=== PATIENT | male | born 1990 | race Caucasian/White ===

== ENCOUNTER 2019-08-31 12:26 | Emergency (ER) | payer SELFPAY | END 2019-08-31 12:34 | disposition left against medical advice (07) | LOC: ER 12:49 | PROVIDERS: Emergency Provider Emergency Medicine | DX: F23 Brief psychotic disorder (principal); R45.851 Suicidal ideations; F15.10 Other stimulant abuse, uncomplicated; F12.10 Cannabis abuse, uncomplicated | CPT/HCPCS: 99281 ==

== ENCOUNTER 2019-08-31 20:48 | Inpatient (IN) | payer SELFPAY ==
[2019-08-31 20:52] VITALS: BP 104/74; PULSE 108; RESP 20; TEMP 37.1; O2SAT 98; BMI 22.8
--- NOTE | 2019-08-31 20:58 | W.ED.PSYCH ---
HPI - Psych General: Chief Complaint: Psychiatric Symptoms Stated Complaint: SI Time Seen by Provider: 08/31/19 20:56 Source: patient Mode of arrival: ambulatory Limitations: no limitations History of Present Illness: HPI Narrative: Patient was brought in by law enforcement for concerns of suicidal intent. Patient was found hanging a noose over a tree limb and setting a cooler under the tree in order to hang himself from a tree. Patient made comments to law enforcement and his sister that he wanted to . Patient reports that he was just mad and upset and was saying things that he did not mean. Patient admits to using methamphetamines. Patient denies feeling suicidal at this time. Patient reports no homicidal intent. Although patient's actions does question his intent on suicidality. Patient is agreeable to admission into NPU. Associated psychiatric symptoms: suicidal ideation Associated symptoms: Reports suicidal ideation Review of Systems General: Reports: 10 or more systems reviewed and unremarkable except in HPI and below Psych: Reports: suicidal ideation [facility] ED PFSH: Social History (Updated 08/31/19 @ 21:08 by Erika Mcallister RN) Smoking and tobacco status: current every day smoker Second hand smoke exposure: Yes Alcohol intake: current Last alcohol use date: 08/28/19 Substance/Drug Use: current Substance/Drug use frequency: Special occassions/opportunity only Substance/Drug use type: Marijuana and Methamphetamine Caregiver/support person: No Lives independently: Yes (homeless) Number of children: 2 Highest education level completed: GED or Equivalent Physical Exam Const: COMMON NORMALS: no apparent distress and oriented x3 GENERAL APPEARANCE: cooperative HENMT: COMMON NORMALS: normocephalic, external ears normal, EAC's normal, TM's normal bilaterally and external nose normal HEAD & SCALP: normal to inspection and normocephalic FACE & SINUS: normal facial exam NOSE: external nose normal GENERAL EAR: hearing not grossly impaired EXTERNAL EAR: Yes external ears normal EXTERNAL AUDITORY CANAL: EAC's normal TYMPANIC MEMBRANE: TM's normal bilaterally MOUTH: oral and palatal mucosa normal THROAT: posterior oropharynx normal Eye: COMMON NORMALS: PERRL and EOMs intact bilaterally PUPIL: Yes PERRL Neck/C-Spine: COMMON NORMALS: full ROM and no lymphadenopathy Lymph: LYMPHATIC: no lymphedema noted Chest: COMMONS NORMALS: inspection of chest normal and palpation of chest normal Resp: COMMON NORMALS: normal respiratory effort and clear to auscultation bilaterally AUSCULTATION: clear to auscultation bilaterally Cardio: COMMON NORMALS: regular rate and regular rhythm RATE: regular rate RHYTHM: regular rhythm GI: COMMON NORMALS: normal to inspection, nondistended, normoactive bowel sounds and non-tender : COMMON NORMALS: Yes no CVA tenderness BLADDER/KIDNEY EXAM: Yes no CVA tenderness Back/Pelvis: COMMON NORMALS: no CVA tenderness and thoracic and lumbar spine normal to inspection Extremity: COMMON NORMALS: normal to inspection GENERAL: No edema Neuro: COMMON NORMALS: oriented x3, moves all extremities and no focal motor deficits Psych: COMMON NORMALS: cooperative, denies hallucinations, denies homicidal ideation and denies suicidal ideation APPEARANCE: Yes bizarre ATTITUDE: Yes evasive ACTIVITY/MOTOR BEHAVIOR: No appropriate eye contact and Yes hyperactive SPEECH: Yes rapid MOOD & AFFECT: Yes anxious THOUGHT PROCESS: circumstantial ATTENTION/CONCENTRATION: Yes attention grossly intact MEMORY/COGNITION: Yes memory grossly intact INSIGHT: fair JUDGEMENT: fair Skin: COMMON NORMALS: no rashes or lesions noted GENERAL SKIN EXAM: no rashes or lesions noted MDM - Psych MDM Narrative: Medical decision making narrative: Patient comes in today for concerns of suicidal intent. Patient was found putting a rope over a tree limb and making a noose apparently going to hang himself. On enforcement I had arrived centimeters this and had placed the patient into their custody and brought him into the emergency department. Patient denies suicidality or homicidality although his intent is in question. Patient is cooperative and agrees to admission to [employer] you. Differential diagnosis includes substance abuse, suicidal ideation, major depression, schizotypal disorder, acute psychosis. Patient needs admission for monitoring and protection of self. Discussed with Dr. Blake who agreed to admission to NPU. Lab Data: Labs: Lab Results 08/31/19 08/31/19 08/31/19 Range/Units 21:18 21:18 21:34 WBC 9.3 (4.0-10.0) 10^3/ uL RBC 4.74 (4.1-5.3) 10^6/u L Hgb 15.0 (11.7-16.6) g/dL Hct 42.4 (42.0-52.0) % MCV 89.5 (80-94) fL MCH 31.6 (28.0-34.0) pg MCHC 35.4 (30.0-36.0) g/dL RDW 11.8 L (12.1-15.1) % Plt Count 239 (130-400) 10^3/c mm MPV 9.5 (7.4-10.4) fL Neut % (Auto) 74.6 % Lymph % (Auto) 15.9 % Levy % (Auto) 8.0 % Eos % (Auto) 0.9 % Baso % (Auto) 0.3 % Neut # (Auto) 6.9 (1.8-7.7) 10^3/u L Lymph # (Auto) 1.5 (0.8-4.8) 10^3/u L Levy # (Auto) 0.7 (0.2-0.9) 10^3/u L Eos # (Auto) 0.1 (0.0-0.8) 10^3/u L Baso # (Auto) 0.0 (0.0-0.1) 10^3/u L Nucleated RBC % (a uto) 0 % Nucleated RBCs # 0.0 /100WBC Sodium (136-145) mmol/L Potassium (3.5-5.1) mmol/L Chloride (98-107) mmol/L Carbon Dioxide (22-29) mmol/L Anion Gap (5-19) BUN (6-20) mg/dL Creatinine (0.7-1.2) mg/dL GFR Calculation (90-130) mL/min Glucose (65-115) mg/dL Calculated Osmolal ity (285-295) mOsm/k g Calcium (8.5-10.5) mg/dL Total Bilirubin (0.15-1.2) mg/dL AST (0-40) U/L ALT (0-41) U/L Alkaline Phosphata se (40-130) IU/L Total Protein (6.6-8.7) g/dL Albumin (3.5-5.2) g/dL Globulin (1.3-4.6) g/dL TSH (0.27-4.20) uIU/ mL Urine Color Yellow (Yellow) Urine Appearance Clear (CLEAR) Urine pH 5 (5-7) Ur Specific Gravit y 1.020 (1.005-1.030) Urine Protein Neg (Negative) Urine Glucose (UA) Norm (Normal) Urine Ketones 1+ H (Negative) Urine Blood 2+ H (Negative) Urine Nitrate Negative (Negative) Urine Bilirubin 1+ H (NEGATIVE) Urine Urobilinogen 4 H (Negative) mg/dL Ur Leukocyte Chen ase Negative (Negative) Urine RBC Too numerous to c nt H (0-2) /hpf Urine WBC None (0-5) /hpf Ur Squamous Epith Cells 0-4 H (0-5) Urine Bacteria 1+ H (NONE) Salicylates (3-10) mg/dL Urine Opiates Scre en Negative (Negative) ng/mL Acetaminophen (10-30) ug/mL Ur Barbiturates Sc reen Negative (Negative) ng/mL Ur Phencyclidine S crn Negative (Negative) ng/mL Ur Amphetamines Sc reen Positive H (Negative) ng/mL U Benzodiazepines Scrn Negative (Negative) ng/mL Urine Cocaine Scre en Negative (Negative) ng/mL U Marijuana (THC) Screen Positive H (Negative) ng/mL Ethyl Alcohol (0-10) mg/dL 08/31/19 Range/Units 21:34 WBC (4.0-10.0) 10^3/ uL RBC (4.1-5.3) 10^6/u L Hgb (11.7-16.6) g/dL Hct (42.0-52.0) % MCV (80-94) fL MCH (28.0-34.0) pg MCHC (30.0-36.0) g/dL RDW (12.1-15.1) % Plt Count (130-400) 10^3/c mm MPV (7.4-10.4) fL Neut % (Auto) % Lymph % (Auto) % Levy % (Auto) % Eos % (Auto) % Baso % (Auto) % Neut # (Auto) (1.8-7.7) 10^3/u L Lymph # (Auto) (0.8-4.8) 10^3/u L Levy # (Auto) (0.2-0.9) 10^3/u L Eos # (Auto) (0.0-0.8) 10^3/u L Baso # (Auto) (0.0-0.1) 10^3/u L Nucleated RBC % (a uto) % Nucleated RBCs # /100WBC Sodium 141 (136-145) mmol/L Potassium 4.0 (3.5-5.1) mmol/L Chloride 101 (98-107) mmol/L Carbon Dioxide 26 (22-29) mmol/L Anion Gap 18.0 (5-19) BUN 16 (6-20) mg/dL Creatinine 0.7 (0.7-1.2) mg/dL GFR Calculation 131.5 H (90-130) mL/min Glucose 113 (65-115) mg/dL Calculated Osmolal ity 289 (285-295) mOsm/k g Calcium 9.8 (8.5-10.5) mg/dL Total Bilirubin 0.5 (0.15-1.2) mg/dL AST 23 (0-40) U/L ALT 17 (0-41) U/L Alkaline Phosphata se 63 (40-130) IU/L Total Protein 7.6 (6.6-8.7) g/dL Albumin 4.3 (3.5-5.2) g/dL Globulin 3.3 (1.3-4.6) g/dL TSH 0.94 (0.27-4.20) uIU/ mL Urine Color (Yellow) Urine Appearance (CLEAR) Urine pH (5-7) Ur Specific Gravit y (1.005-1.030) Urine Protein (Negative) Urine Glucose (UA) (Normal) Urine Ketones (Negative) Urine Blood (Negative) Urine Nitrate (Negative) Urine Bilirubin (NEGATIVE) Urine Urobilinogen (Negative) mg/dL Ur Leukocyte Chen ase (Negative) Urine RBC (0-2) /hpf Urine WBC (0-5) /hpf Ur Squamous Epith Cells (0-5) Urine Bacteria (NONE) Salicylates 0.5 L (3-10) mg/dL Urine Opiates Scre en (Negative) ng/mL Acetaminophen < 5.0 L (10-30) ug/mL Ur Barbiturates Sc reen (Negative) ng/mL Ur Phencyclidine S crn (Negative) ng/mL Ur Amphetamines Sc reen (Negative) ng/mL U Benzodiazepines Scrn (Negative) ng/mL Urine Cocaine Scre en (Negative) ng/mL U Marijuana (THC) Screen (Negative) ng/mL Ethyl Alcohol < 10 (0-10) mg/dL Discharge Plan Discharge Patient Disposition: Psych Hosp/Unit w Plan Readm Clinical Impression: Acute psychosis Condition: Stable Discharge Date/Time: 08/31/19 22:30 Coding Level of Care Code ED Scheduler Conveyor for Valeria Fwtheresa Exam Comprehensive
[2019-08-31 21:05] VITALS: BP 104/74; PULSE 108; RESP 20; TEMP 37.1; O2SAT 98
[2019-08-31 21:37] LABS: Blood Urine 2+ (Negative); Glucose Urine UA Norm (Normal); Ketones Urine 1+ (Negative); Nitrate Urine Negative (Negative); Protein Urine Neg (Negative); Urine Appearance Clear (CLEAR); Urine Color Yellow (Yellow); pH Urine 5 (5-7)
[2019-08-31 21:38] LABS: Add Urine Microscopic? YES; Bilirubin Urine 1+ (NEGATIVE); Leukocyte Esterase Urine Negative (Negative); Urobilinogen Urine 4 mg/dL (Negative)
[2019-08-31 21:40] LABS: Add Urine Culture? Yes; Amphetamines Screen Urine Positive (Negative); Bacteria Urine 1+; Barbiturates Screen Urine Negative (Negative); Benzodiazepines Screen Urine Negative (Negative); Cocaine Screen Urine Negative (Negative); Opiate Screen Urine Negative (Negative); PCP Screen Urine Negative (Negative); RBC Urine TOO NUMEROUS TO CNT /hpf (0-2); Squamous Epithelial Cell Urine 0-4 (0-5); THC Screen Urine Positive (Negative)
[2019-08-31 21:43] LABS: Basophils % 0.3 %; Eosinophils # 0.1 10^3/uL (0.0-0.8); Eosinophils % 0.9 %; Hematocrit 42.4 % (42.0-52.0); Lymphocytes # 1.5 10^3/uL (0.8-4.8); Lymphocytes % 15.9 %; Mean Corpuscular HGB Conc 35.4 g/dL (30.0-36.0); Mean Corpuscular Hemoglobin 31.6 pg (28.0-34.0); Mean Corpuscular Volume 89.5 fL (80-94); Mean Platelet Volume 9.5 fL (7.4-10.4); Monocytes # 0.7 10^3/uL (0.2-0.9); Neutrophils # 6.9 10^3/uL (1.8-7.7); Neutrophils % 74.6 %; Nucleated Red Blood Cells % 0 %; Platelet Count 239 10^3/cmm (130-400); Red Blood Count 4.74 10^6/uL (4.1-5.3); Red Cell Distribution Width 11.8 % (12.1-15.1); White Blood Count 9.3 10^3/uL (4.0-10.0)
[2019-08-31 22:03] LABS: Alanine Aminotransferase 17 U/L (0-41); Albumin Level 4.3 g/dL (3.5-5.2); Alkaline Phosphatase 63 IU/L (40-130); Aspartate Amino Transferase 23 U/L (0-40); Blood Urea Nitrogen 16 mg/dL (6-20); Calcium 9.8 mg/dL (8.5-10.5); Carbon Dioxide 26 mmol/L (22-29); Chloride 101 mmol/L (98-107); Globulin 3.3 g/dL (1.3-4.6); Glomerular Filtration Rate 131.5 mL/min (90-130); Glucose 113 mg/dL (65-115); Osmolality Calculated 289 mOsm/kg (285-295); Salicylate 0.5 mg/dL (3-10); Sodium 141 mmol/L (136-145); Thyroid Stimulating Hormone 0.94 uIU/mL (0.27-4.20); Total Bilirubin 0.5 mg/dL (0.15-1.2); Total Protein 7.6 g/dL (6.6-8.7)
[2019-08-31 22:05] LABS: Acetaminophen < 5.0 ug/mL (10-30); Alcohol Level < 10 mg/dL (0-10)
[2019-08-31 22:38] VITALS: BP 113/76; PULSE 92; RESP 18; TEMP 36.9; O2SAT 99
[2019-09-01 06:00] VITALS: BP 116/72; PULSE 63; RESP 21; TEMP 36.8; O2SAT 98
--- NOTE | 2019-09-01 09:56 | P.HP_ITS ---
Providers/Chief Complaint Admitting Physician: Wilton Blake MD Chief Complaint: SI HPI NPU History of Present Illness John Osei Jr is a 29 year old male who presented to the emergency room with significant psychosis and confusion who presents much the same way after being admitted for psychosis and suicidal thinking. He is able to answer questions but only rudimentary as he struggles to stay awake and struggles to make sensible responses. At times his speech is linear and organized but at times it is clearly not. He was able to acknowledge that he has significant issues with addiction and he has to figure that out with this won't get better. We reviewed as best he could his most recent psychiatric evaluation here on a and he denied any significant changes at this time he struggling with legal and addiction issues he is unsure if he'll have a place to stay as his mother has become fed up with his repeated behavior. He reported a desire to continue treatment somehow some inpatient treatment facility with a find one and he was open to initiating Abilify after discussion of the risks, benefits and alternatives. He understood and agreed to proceed as is documented in his note. Psychiatric history: As above multiple hospitalizations and substance abuse treatment facilities. Reportedly multiple medication trials. Substance abuse history: He reports significant methamphetamine use these days. He also endorses other drug use depending on the time. He reports that he has had treatment in the past but he never sticks with it and he truly has to find another way to do that. Per last [facility] eval: History of Present Illness Date of Service: Feb 03, 2019 Chief Complaint: Acute paranoia, requesting help with methamphetamine abuse. HPI: This is a 29-year-old male who reports that he has been abusing meth he has become increasingly paranoid to the point that, while being transferred to [facility] for a possible drug overdose, jumped out of the ambulance in [place], went into an [employer]'s store, bought a knife and told the staff to call the police. The patient stood outside the store and was foundby responding law enforcement officers to be extremely paranoid. One officer asked the patient if he had used drugs recently and he stated he had used meth today and just about every day. The patient was convinced that people were following him and out to get him. [facility]'s officers reported that the patient had been a problem for about a week, in and out of [place] [facility] in the emergency room. Patient ran his head and his hand through a one-way last in the interrogation. He was violent and combative in the emergency room. Allergies: Coded Allergies: HALOPERIDOL (Verified Allergy, Severe, 02/03/19) Active Meds: Current Hospital Medications: Medications (Trade) Dose Ordered Sig/Teddy Route PRN Reason Start Time Stop Time Status Last Admin Dose Admin Lorazepam (Ativan Tab) 0.5 mg Q4H PRN PO FOR MILD ANXIETY 02/02/19 23:30 Lorazepam (Ativan Tab) 1 mg Q4H PRN PO FOR MODERATE ANXIETY 02/02/19 23:30 Lorazepam (Ativan Tab) 2 mg Q4H PRN PO FOR SEVERE ANXIETY 02/02/19 23:30 Lorazepam (Ativan Inj) 2 mg Q4H PRN IM For Severe Aggression 02/02/19 23:30 Diphenhydramine HCl (Benadryl Inj) 50 mg ONCE PRN IV Severe Extrapyramidal Symptoms 02/02/19 23:30 Benztropine Mesylate (Cogentin Tab) 1 mg BID PRN PO Mild Extrapyramidal symptoms 02/02/19 23:30 Benztropine Mesylate (Cogentin Inj) 1 mg ONCE PRN IM Severe Extrapyramidal Symptom 02/02/19 23:30 Acetaminophen (Tylenol Tab) 650 mg Q4H PRN PO FOR MILD PAIN 02/02/19 23:30 02/03/19 11:13 Trazodone HCl (Trazodone) 50 mg BEDTIME PRN PO FOR SLEEP 02/02/19 23:30 Nicotine (Nicoderm Patch) 21 mg DAILY PRN TD FOR WITHDRAWAL 02/02/19 23:30 Nicotine Polacrilex (Nicotine Gum) 2 mg Q2H PRN PO Withdrawal 02/02/19 23:30 Lorazepam (Ativan Tab) 2 mg Q4H PRN PO FOR AGITATION 02/02/19 23:30 Cephalexin (Keflex Cap) 500 mg QID PO 02/03/19 06:00 02/03/19 11:11 Home Meds: Home Medications: Active No Active Prescriptions or Reported Medications Past Medical History Past Medical History: Not currently available. The patient not able to communicate coherently. Review of Systems Review of Systems: Not presently available Meds NPU Home Medications Medication Instructions Recorded Confirmed Type No Known Home Medications 08/31/19 08/31/19 History Allergies Allergy/AdvReac Type Severity Reaction Status Date / Time haloperidol [From Haldol] Allergy ALGY-Anaphy Verified 08/31/19 21:04 laxis PFS NPU PFSH: Social History (Updated 08/31/19 @ 21:08 by Erika Mcallister RN) Smoking and tobacco status: current every day smoker Second hand smoke exposure: Yes Alcohol intake: current Last alcohol use date: 08/28/19 Substance/Drug Use: current Substance/Drug use frequency: Special occassions/opportunity only Substance/Drug use type: Marijuana and Methamphetamine Caregiver/support person: No Lives independently: Yes (homeless) Number of children: 2 Highest education level completed: GED or Equivalent Mental Status Exam MSE Comments: This is a well-nourished well-developed white male with limited dress, grooming and eye contact. With tattoos on his exposed skin including his face. No abnormal movements except for significant psychomotor retardation. Cooperative with exam in no acute distress. Speech was limited and decreased rate and volume. Mood described as horrible affect congruent. Thought process organized/linear thought content: Patient denied suicidal or homicidal ideation, there were no delusions reported clear paranoia and persecutory delusions exist he denied any auditory or visual hallucinations. Attention and concentration were impaired and memory was unreliable but none were formally tested. He is alert mostly and oriented person and place insight and judgment are limited but improving. Vitals/I&O/Wt Last Vital Signs Temp 97.9 F 09/01/19 20:16 Pulse 63 09/01/19 20:16 Resp 18 09/01/19 20:16 BP 104/63 09/01/19 20:16 Pulse Ox 98 09/01/19 20:16 Weight last 48 hrs Weight 68.039 kg Data NPU : 08/31/19 21:34 08/31/19 21:34 A&P Assessment and plan (1) Acute psychosis: There is a 29-year-old white male with a long history of addiction with methamphetamine being prominent in recent years, psychosis and suicidal thoughts who presents after recent relapse with significant psychosis and inability to contract for safety. 1. Continue current medication. Except: Start Abilify 10 mg by mouth every morning. 2. Encourage individual, group and milieu therapy. 3. Continue every 15 minute checks for safety. 4. Work with social work to find a sober living facility at the highest level of treatment to which he is willing to commit. Status: Acute (2) Depression: Status: Acute (3) Methamphetamine dependence: Status: Acute Involuntary Hold Information 96 Hour Hold: 96 Hour Involuntary Admission: No Attestations NPU Medical Necessity Statement*: Inpatient hospitalization is medically necessary and the clinically appropriate intervention at this time. We will monitor his medications and titrate as indicated. He will be in the hospital for over 2 mid nights. Likely length of stay 2-4 days. Coding Level of Care Code Acute Operating Room Surgical Technician for Valeria Fwd Diagnoses Acute psychosis F23 Depression F32.9 Methamphetamine dependence F15.20
[2019-09-01 14:00] VITALS: BP 113/74; PULSE 96; RESP 20; TEMP 36.9; O2SAT 95
[2019-09-01 20:16] VITALS: BP 104/63; PULSE 63; RESP 18; TEMP 36.6; O2SAT 98
[2019-09-02 06:00] VITALS: BP 110/68; PULSE 57; RESP 19; TEMP 36.4; O2SAT 100
[2019-09-02] MEDS: ARIPiprazole 10 mg Tablet PO (09:19)
--- NOTE | 2019-09-02 12:57 | P.PN_ITS ---
Subjective NPU Subjective: Interval history: John presents today reporting that he feels the he really needs to get back on track. He reports that the medication generally is very helpful but due to addiction and other choices he never really follows through. He endorses feeling a significant drive this time to get it right. He reports that the medication is helping to clear his mind he reports that he is eating okay is sleeping a little better. Mental Status Exam MSE Comments: This is a well-nourished well-developed white male with limited dress, grooming and eye contact. With tattoos on his exposed skin including his face. No abnormal movements except for psychomotor retardation. Cooperative with exam in no acute distress. Speech was limited and decreased rate and volume. Mood described as a little better, affect congruent. Thought process organized/linear thought content: Patient denied suicidal or homicidal ideation, there were no delusions reported clear paranoia and persecutory delusions that are starting to resolve he denied any auditory or visual hallucinations. Atte ntion and concentration were improving and memory was more reliable but none were formally tested. He is alert and oriented x 3. insight and judgment are limited but improving. Vitals/I&O/Wt Last Vital Signs Temperature 97.6, pulse 97, respirations 19, pulse ox 100%, blood pressure 110/68. Data NPU : 08/31/19 21:34 08/31/19 21:34 Micro: Microbiology 08/31/19 21:18 Urine Culture - Final Urine,Clean Catch Microbiology 08/31/19 21:18 Urine,Clean Catch Urine Culture - Final A&P Additional A&P Information (1) Acute psychosis: There is a 29-year-old white male with a long history of addiction with methamphetamine being prominent in recent years, psychosis and suicidal thoughts who presents after recent relapse with significant psychosis and inability to contract for safety. 1. Continue current medication. 2. Encourage individual, group and milieu therapy. 3. Continue every 15 minute checks for safety. 4. Work with social work to find a sober living facility at the highest level of treatment to which he is willing to commit. (2) Depression: (3) Methamphetamine dependence: Involuntary Hold Information 96 Hour Hold: 96 Hour Involuntary Admission: No Attestations NPU Medical Necessity Statement*: Inpatient hospitalization is medically necessary and the clinically appropriate intervention at this time. We will monitor his medications and titrate as indicated. Likely length of stay 1-3 days. Coding Level of Care Code Acute Manager Development for Valeria Nino
[2019-09-02 14:00] VITALS: BP 107/63; PULSE 72; RESP 16; TEMP 36.8; O2SAT 97
[2019-09-02] MEDS: nicotine 2 mg Gum BUCCAL (14:04)
[2019-09-02 21:12] VITALS: BP 112/70; PULSE 59; RESP 17; TEMP 36.8; O2SAT 98
[2019-09-03 06:00] VITALS: BP 111/71; PULSE 61; RESP 16; TEMP 37.1; O2SAT 97
[2019-09-03] MEDS: ARIPiprazole 10 mg Tablet PO (08:40)
--- NOTE | 2019-09-03 12:25 | P.DS_ITS ---
Diagnoses at Discharge Discharge Diagnosis (1) Acute psychosis: Status: Acute (2) Depression: Status: Acute (3) Methamphetamine dependence: Status: Acute Reason for Visit Reason for Visit: Reason For Visit: SI Brief History: History of Present Illness John Osei Jr is a 29 year old male who presented to the emergency room with significant psychosis and confusion who presents much the same way after being admitted for psychosis and suicidal thinking. He is able to answer questions but only rudimentary as he struggles to stay awake and struggles to make sensible responses. At times his speech is linear and organized but at times it is clearly not. He was able to acknowledge that he has significant issues with addiction and he has to figure that out with this won't get better. We reviewed as best he could his most recent psychiatric evaluation here on a and he denied any significant changes at this time he struggling with legal and addiction issues he is unsure if he'll have a place to stay as his mother has become fed up with his repeated behavior. He reported a desire to continue treatment somehow some inpatient treatment facility with a find one and he was open to initiating Abilify after discussion of the risks, benefits and alternatives. He understood and agreed to proceed as is documented in his note. Psychiatric history: As above multiple hospitalizations and substance abuse treatment facilities. Reportedly multiple medication trials. Substance abuse history: He reports significant methamphetamine use these days. He also endorses other drug use depending on the time. He reports that he has had treatment in the past but he never sticks with it and he truly has to find another way to do that. Per last [facility] eval: History of Present Illness Date of Service: Feb 03, 2019 Chief Complaint: Acute paranoia, requesting help with methamphetamine abuse. HPI: This is a 29-year-old male who reports that he has been abusing meth he has become increasingly paranoid to the point that, while being transferred to [facility] for a possible drug overdose, jumped out of the ambulance in [place], went into an [employer] store, bought a knife and told the staff to call the police. The patient stood outside the store and was foundby responding law enforcement officers to be extremely paranoid. One officer asked the patient if he had used drugs recently and he stated he had used meth today and just about every day. The patient was convinced that people were following him and out to get him. [facility]'s officers reported that the patient had been a problem for about a week, in and out of intermediate in the emergency room. Patient ran his head and his hand through a one-way last in the interrogation. He was violent and combative in the emergency room. Allergies: Coded Allergies: HALOPERIDOL (Verified Allergy, Severe, 02/03/19) Hospital Course Hospital Course John presented to the emergency room as he has in the past with issues of addiction and suicidal thoughts. He presented this time in that same vein reporting suicidality and recent struggles with methamphetamine. He was admitted to the neuro-psychiatric unit and quickly acclimated to the individual, group, and milieu therapies provided. He was started on Abilify at a fairly robust response. During the hospitalization he had routine laboratory studies which were within normal limits except for a few outliers. Additionally, he had a general medical evaluation which was within normal limits and revealed no new acute processes. Discharge Summary At the time of discharge, he was absent lethality, his psychosis was resolving, his mood and anxiety were under control and he endorsed a plan to avoid all drugs of abuse and follow-up with treatment recommendations provided. He was evaluated and deemed to be absent credible lethality and had received the maximum benefit from inpatient hospitalization, so he was discharged. Involuntary Hold Information 96 Hour Hold: 96 Hour Involuntary Admission: No Mental Status Exam MSE Comments: This is a well-nourished, well-developed, white male, with improved dress, grooming, and eye contact with tattoos on his exposed skin including his face with no abnormal movements except resolving mild psychomotor retardation. Cooperative with exam in no acute distress. Speech was more normal rate and volume. Mood described as much better; affect congruent. Thought process, organized. Thought content: patient denied any suicidal or homicidal ideation, there were no delusions reported or noted, patient denied any auditory or visual hallucinations. Attention, concentration, and memory appeared intact but were not formally tested. Alert and oriented times three. Insight and judgment are improving. Discharge Data Vitals: Last Vital Signs Temp 99.0 F 09/03/19 16:54 Pulse 89 09/03/19 16:54 Resp 17 09/03/19 16:54 BP 121/68 09/03/19 16:54 Pulse Ox 96 09/03/19 16:54 Discharge Plan Discharge Patient Disposition: Home, Self-Care Condition: Stable Prescriptions: New aripiprazole 10 mg Tablet 10 mg PO DAILY 30 Days Qty: 30 RF: 1 Discharge Orders: Discharge Order (Routine); Ordered 09/03/19 Ordered By: Wilton Blake Referrals: [facility] [Other] (If you go to [facility] in the future you can follow-up at [facility] in [facility].. walk-in hours Tuesdays and 7:30 a.m.-2:30 p.m. go during the walk-in hours on either day and request initial intake. ) [facility] [Other] (Call within 3-5 days of discharge to get an appointment. Hours: Friday-, 8 a.m. to 8 p.m. Friday, 8 a.m. to 5 p.m. Connection Center: 7:30 a.m. to 3:30 p.m. Services offered at this location: [facility] on [facility] main [facility] houses psychiatry and therapy offices, as well as our new [facility] and our expanded [facility]. Houses adult and youth specialty services, as well as a variety of intake and assessment services, including Substance-Use Disorder assessments and connection to [facility] services within the [facility] system. The main [facility] is also located in [facility]. ) Discharge Diet: Regular Discharge Activity: Resume usual activity Activity Restrictions/Additional Instructions: For help with your recovery...(they might have a bed in the near future) [facility] in [place] [phone] (Cesar Persaud or Sb) [facility] in [facility] [phone] (Blaise Richardson) Discharge Date/Time: 09/03/19 17:07 Discharge Attestations NPU Time Spent in Discharge Care*: less than 30 min Specific Discharge Activities: Specific discharge activities: educating patient, discussing with disability case manager/social workers/dc planners, documenting/other paperwork and evaluating patient/reviewing data Coding Level of Care Code Acute Freight Weigher for Chg Fwd Diagnoses Acute psychosis F23 Depression F32.9 Methamphetamine dependence F15.20
[2019-09-03 14:00] VITALS: BP 121/68; PULSE 89; RESP 17; TEMP 37.2; O2SAT 96
[2019-09-03 16:54] VITALS: BP 121/68; PULSE 89; RESP 17; TEMP 37.2; O2SAT 96
== END 2019-09-03 17:07 | disposition home or self-care (01) | DRG 885 ==
LOC: ER 22:15 → NP 22:30
PROVIDERS: Admitting Provider Psychiatry & Neurology Psychiatry; Emergency Provider Nurse Practitioner Family; Visit Provider Psychiatry & Neurology Psychiatry
DX: F23 Brief psychotic disorder (principal); R45.851 Suicidal ideations; F15.20 Other stimulant dependence, uncomplicated; F17.210 Nicotine dependence, cigarettes, uncomplicated
CPT/HCPCS: 12345; 36415; 80053; 80306; 80307; 81001; 84443; 85025; 87086; 99284

== ENCOUNTER 2020-02-16 21:15 | Emergency (ER) | payer SELFPAY ==
[2020-02-16 21:20] VITALS: BP 110/68; PULSE 105; RESP 22; TEMP 36.5; O2SAT 97; BMI 22.8
--- NOTE | 2020-02-16 21:28 | ED_ITS ---
HPI - Psych General: Chief Complaint: Psychiatric Symptoms Stated Complaint: ESTEPHANIE VENTURA Time Seen by Provider: 02/16/20 21:18 Source: patient Mode of arrival: ambulatory Limitations: no limitations History of Present Illness: HPI Narrative: 29-year-old male he states he has had increasing depression over the last 2 to 3 days. He states he has no specific plan but wants to get help and is voluntarily 1 to be admitted. He does admit to methamphetamine use and states that he used yesterday. He states he was admitted 2 months ago and never filled his prescriptions. He denies any worsening or improving factors. complaint: suicidal ideation Onset (ago): day(s) Associated symptoms: Reports depression; Deny suicidal ideation Review of Systems Const: Denies: fever(s), chills, body aches or change in appetite Eyes: Denies: blurry vision or eye discomfort ENMT: Denies: throat pain or dental pain Card: Denies: chest pain Resp: Denies: dyspnea GI: Denies: abdominal pain, nausea, vomiting or diarrhea : Denies: dysuria Musc: Denies: neck pain or back pain Skin/Breast: Denies: rash Neuro: Denies: headache(s) Psych: Reports: depression; Denies: suicidal ideation Rishi/Lymph: Denies: easy bruising All/Imm: Denies: urticaria PFSH ED PFSH: Social History Smoking and tobacco status: current every day smoker Second hand smoke exposure: Yes Alcohol intake: current Last alcohol use date: 08/28/19 Caregiver/support person: No Lives independently: Yes (homeless) Number of children: 2 Highest education level completed: GED or Equivalent Physical Exam Const: COMMON NORMALS: no acute distress, patient oriented x3 and healthy appearing HENMT: COMMON NORMALS: normocephalic and atraumatic HEAD & SCALP: normocephalic and atraumatic Eye: COMMON NORMALS: Equal, round and reactive pupils present and EOMs intact bilaterally PUPIL: Yes Equal, round and reactive pupils present Neck/C-Spine: COMMON NORMALS: full ROM and supple Chest: COMMONS NORMALS: normal inspection of the chest and normal palpation of entire chest wall Resp: COMMON NORMALS: normal respiratory effort, No retractions, No use of accessory muscles and clear to auscultation bilaterally AUSCULTATION: clear to auscultation bilaterally Cardio: COMMON NORMALS: regular rate, regular rhythm and No murmurs present (C ardio) RATE: regular rate RHYTHM: regular rhythm GI: COMMON NORMALS: Normal to inspection, nondistended, normoactive bowel sounds present, Soft to palpation, non-tender and no masses PALPATION: Yes Soft to palpation Extremity: COMMON NORMALS: normal to inspection and full ROM Neuro: COMMON NORMALS: patient oriented x3, moves all extremities and no focal motor deficits Psych: COMMON NORMALS: mental status grossly normal, Normal thought process present and cooperative THOUGHT PROCESS: Normal thought process present Skin: COMMON NORMALS: no rashes or lesions noted and no wounds GENERAL SKIN EXAM: no rashes or lesions noted MDM - Psych MDM Narrative: Medical decision making narrative: Patient presents here with depression. He denied any suicidality to be. Patient was voluntarily wanting to be admitted. Sitter came to me and informed me that patient had got up and left. I was unable to speak to the patient before he left. Patient was not under a 96-hour hold as he had no suicidal ideations and had made no suicidal statements to me. Patient did elope without speaking to me or any nursing staff. Discharge Plan Discharge Patient Disposition: Home Clinical Impression: Depression Condition: Stable Prescriptions: No Action aripiprazole 10 mg Tablet 10 mg PO DAILY 30 Days Qty: 30 RF: 1 Coding Level of Care Code ED Assembly Machine Operator for Valeria Fwd Exam Comprehensive
[2020-02-16] MEDS: LORazepam 2 mg Tablet PO (21:32)
[2020-02-16 22:03] LABS: Basophils # 0.1 10^3/uL (0.0-0.1); Basophils % 0.4 %; Eosinophils # 0.1 10^3/uL (0.0-0.8); Eosinophils % 1.1 %; Hematocrit 46.2 % (42.0-52.0); Hemoglobin 16.2 g/dL (11.7-16.6); Lymphocytes # 2.7 10^3/uL (0.8-4.8); Lymphocytes % 23.9 %; Mean Corpuscular HGB Conc 35.1 g/dL (30.0-36.0); Mean Corpuscular Hemoglobin 32.2 pg (28.0-34.0); Mean Corpuscular Volume 91.8 fL (80-94); Mean Platelet Volume 9.5 fL (7.4-10.4); Monocytes # 0.7 10^3/uL (0.2-0.9); Monocytes % 6.1 %; Neutrophils # 7.76 10^3/uL (1.8-7.7); Neutrophils % 68.2 %; Nucleated Red Blood Cells % 0 %; Platelet Count 264 10^3/cmm (130-400); Red Blood Count 5.03 10^6/uL (4.1-5.3); Red Cell Distribution Width 12.7 % (12.1-15.1); White Blood Count 11.4 10^3/uL (4.0-10.0)
--- NOTE | 2020-02-16 22:11 | PC.NURSE ---
This RN was sitting with patient, blood and urine was collected patient was lying in bed, not saying anything, patient jumped and stated, I am leaving patient was not 96'd patient was allowed to leave the ER, CHarge nurse and MD notified
[2020-02-16 22:36] LABS: Alanine Aminotransferase 19 U/L (0-41); Albumin Level 4.2 g/dL (3.5-5.2); Alkaline Phosphatase 81 IU/L (40-130); Anion Gap 14.4 (5-19); Aspartate Amino Transferase 19 U/L (0-40); Blood Urea Nitrogen 10 mg/dL (6-20); Calcium 9.4 mg/dL (8.5-10.5); Carbon Dioxide 27 mmol/L (22-29); Chloride 100 mmol/L (98-107); Globulin 3.3 g/dL (1.3-4.6); Glomerular Filtration Rate 157.1 mL/min (90-130); Glucose 130 mg/dL (65-115); Osmolality Calculated 287 mOsm/kg (285-295); Potassium 3.4 mmol/L (3.5-5.1); Sodium 138 mmol/L (136-145); Total Bilirubin 0.4 mg/dL (0.15-1.2); Total Protein 7.5 g/dL (6.6-8.7)
[2020-02-16 22:39] LABS: Acetaminophen < 5.0 ug/mL (10-30); Alcohol Level < 10 mg/dL (0-10); Salicylate < 0.3 mg/dL (3-10)
[2020-02-16 22:40] LABS: Amphetamines Screen Urine Positive (Negative); Barbiturates Screen Urine Negative (Negative); Benzodiazepines Screen Urine Negative (Negative); Cocaine Screen Urine Negative (Negative); Opiate Screen Urine Negative (Negative); PCP Screen Urine Negative (Negative); THC Screen Urine Positive (Negative)
== END 2020-02-16 22:15 | disposition left against medical advice (07) ==
PROVIDERS: Emergency Provider Emergency Medicine
DX: F32.9 Major depressive disorder, single episode, unspecified (principal); F17.210 Nicotine dependence, cigarettes, uncomplicated
CPT/HCPCS: 12345; 80053; 80306; 80307; 85025; 99284

== ENCOUNTER 2020-03-05 12:12 | Inpatient (IN) | payer SELFPAY ==
[2020-03-05 12:47] VITALS: PULSE 89; RESP 14; TEMP 36.2; O2SAT 100; BMI 22.8
--- NOTE | 2020-03-05 13:32 | W.ED.PSYCH ---
HPI - Psych General: Chief Complaint: Psychiatric Symptoms Stated Complaint: hallucinations/hearing things Time Seen by Provider: 03/05/20 13:19 Source: patient Mode of arrival: ambulatory Limitations: no limitations History of Present Illness: HPI Narrative: 30-year-old male who is well-known to the ER and has history of drug abuse psychosis. He states he has been using morphine and methadone for pain and is having hallucinations now having depression and increased suicidal thoughts. Patient voluntarily wants to be admit to the psychiatric unit. MD complaint: feels depressed Onset (ago): hour(s) Duration: constant Associated symptoms: Reports depression Review of Systems Const: Denies: fever(s), chills, body aches or change in appetite Eyes: Denies: blurry vision or eye discomfort ENMT: Denies: throat pain or dental pain Card: Denies: chest pain Resp: Denies: dyspnea GI: Denies: abdominal pain, nausea, vomiting or diarrhea : Denies: dysuria Musc: Denies: neck pain or back pain Skin/Breast: Denies: rash Neuro: Denies: headache(s) Psych: Reports: anxiety and depression Rishi/Lymph: Denies: easy bruising All/Imm: Denies: urticaria PFSH ED PFSH: Social History Smoking and tobacco status: current every day smoker Second hand smoke exposure: Yes Alcohol intake: current Last alcohol use date: 08/28/19 Caregiver/support person: No Lives independently: Yes (homeless) Number of children: 2 Highest education level completed: GED or Equivalent Physical Exam Const: COMMON NORMALS: no acute distress, patient oriented x3 and healthy appearing HENMT: COMMON NORMALS: normocephalic and atraumatic HEAD & SCALP: normocephalic and atraumatic Eye: COMMON NORMALS: Equal, round and reactive pupils present and EOMs intact bilaterally PUPIL: Yes Equal, round and reactive pupils present Neck/C-Spine: COMMON NORMALS: full ROM and supple Chest: COMMONS NORMALS: normal inspection of the chest and normal palpation of entire chest wall Resp: COMMON NORMALS: normal respiratory effort, No retractions, No use of accessory muscles and clear to auscultation bilaterally AUSCULTATION: clear to auscultation bilaterally Cardio: COMMON NORMALS: regular rate, regular rhythm and No murmurs present (Cardio) RATE: regular rate RHYTHM: regular rhythm GI: COMMON NORMALS: Normal to inspection, nondistended, normoactive bowel sounds present, Soft to palpation, non-tender and no masses PALPATION: Yes Soft to palpation Extremity: COMMON NORMALS: normal to inspection and full ROM Neuro: COMMON NORMALS: patient oriented x3, moves all extremities and no focal motor deficits Psych: COMMON NORMALS: mental status grossly normal and cooperative MOOD & AFFECT: Yes anxious THOUGHT PROCESS: disorganized Skin: COMMON NORMALS: no rashes or lesions noted and no wounds GENERAL SKIN EXAM: no rashes or lesions noted MDM - Psych MDM Narrative: Medical decision making narrative: Presents here with hallucinations along with depression. I spoke to Dr. Renee and will admit to the psych unit. Patient has been stable here. He has no specific plans and is in being admitted as a voluntary status. Discharge Plan Discharge Patient Disposition: Admitted As Inpatient Admit Provider: Víctor Renee Clinical Impression: Acute psychosis, Methamphetamine dependence, Depression Condition: Stable Coding Level of Care Code ED Advisory Services Associate for Chg Fwd Exam Comprehensive
[2020-03-05 14:09] LABS: Basophils % 0.5 %; Eosinophils # 0.1 10^3/uL (0.0-0.8); Eosinophils % 0.8 %; Hematocrit 49.7 % (42.0-52.0); Lymphocytes # 1.1 10^3/uL (0.8-4.8); Lymphocytes % 12.9 %; Mean Corpuscular HGB Conc 34.2 g/dL (30.0-36.0); Mean Corpuscular Hemoglobin 31.7 pg (28.0-34.0); Mean Corpuscular Volume 92.7 fL (80-94); Mean Platelet Volume 9.6 fL (7.4-10.4); Monocytes # 0.5 10^3/uL (0.2-0.9); Monocytes % 5.3 %; Neutrophils # 6.98 10^3/uL (1.8-7.7); Neutrophils % 80.4 %; Nucleated Red Blood Cells % 0 %; Platelet Count 216 10^3/cmm (130-400); Red Blood Count 5.36 10^6/uL (4.1-5.3); Red Cell Distribution Width 12.6 % (12.1-15.1); White Blood Count 8.7 10^3/uL (4.0-10.0)
[2020-03-05 14:32] LABS: Alanine Aminotransferase 21 U/L (0-41); Albumin Level 4.4 g/dL (3.5-5.2); Alkaline Phosphatase 83 IU/L (40-130); Anion Gap 16.7 (5-19); Aspartate Amino Transferase 18 U/L (0-40); Blood Urea Nitrogen 14 mg/dL (6-20); Calcium 9.9 mg/dL (8.5-10.5); Carbon Dioxide 23 mmol/L (22-29); Chloride 103 mmol/L (98-107); Globulin 3.1 g/dL (1.3-4.6); Glomerular Filtration Rate 130.7 mL/min (90-130); Glucose 92 mg/dL (65-115); Osmolality Calculated 288 mOsm/kg (285-295); Potassium 3.7 mmol/L (3.5-5.1); Sodium 139 mmol/L (136-145); Total Bilirubin 0.4 mg/dL (0.15-1.2); Total Protein 7.5 g/dL (6.6-8.7)
[2020-03-05 14:35] LABS: Acetaminophen < 5.0 ug/mL (10-30); Alcohol Level < 10 mg/dL (0-10); Salicylate < 0.3 mg/dL (3-10)
--- NOTE | 2020-03-05 14:54 | PM.SDS ---
Short Stay Summary Providers Date of Admit/Discharge: 03/05/20 Attending Provider: Víctor Renee Chief Complaint: hallucinations/hearing things HPI History of Present Illness John Osei Jr is a 30 year old male who states that he came here voluntarily and now wants to be discharged. He says he has anger management problems and the increased restrictiveness of this environment is upsetting him. He is said to be having auditory hallucinations but he denies this at the moment. He also denies suicidal or homicidal ideation, plan or intent. I spent the better part of an hour with him and it is plain that he is oriented and not delusional. He said he had been hearing things but denies this now. He insists that he is a voluntary patient and would like to have his [place] interests returned to him. I discussed his agitation with him and he says he is not going to hurt anybody, including himself. I patiently explained to him the advantages of continuing hospitalization and he insisted he wanted to get treatment on an outpatient basis. He comes from [place] and I gave him instructions on how to access the clinic there. He said he knew exactly where it was. He had calmed down and we were able to talk without any loud voices. I elected to allow him to maintain his [place] interests and to leave AGAINST MEDICAL ADVICE, as I would prefer to treat him and get him on his medicines here, which he has declined. I believe he is competent, per my assessment today, to decide on his healthcare and to insist on his Liberties. Review of Systems Narrative: Const: Denies: fever(s), chills, body aches or change in appetite Eyes: Denies: blurry vision or eye discomfort ENMT: Denies: throat pain or dental pain Card: Denies: chest pain Resp: Denies: dyspnea GI: Denies: abdominal pain, nausea, vomiting or diarrhea : Denies: dysuria Musc: Denies: neck pain or back pain Skin/Breast: Denies: rash Neuro: Denies: headache(s) Psych: Reports: anxiety and depression Rishi/Lymph: Denies: easy bruising All/Imm: Denies: urticarial Home Meds/Allergies Home Medications and Allergies Home Medications Medication Instructions Recorded Confirmed Type No Known Home Medications 03/05/20 03/05/20 History Allergies Allergy/AdvReac Type Severity Reaction Status Date / Time haloperidol [From Haldol] Allergy ALGY-Anaphy Verified 02/16/20 21:31 laxis PFSH Acute PFSH: Social History Smoking and tobacco status: current every day smoker Second hand smoke exposure: Yes Alcohol intake: current Last alcohol use date: 08/28/19 Caregiver/support person: No Lives independently: Yes (homeless) Number of children: 2 Highest education level completed: GED or Equivalent Personal Safety: Do you feel safe at home: Yes Victim of physical abuse: No Victim of emotional abuse: No Victim of sexual abuse: No Would you like help information on resources?: No Vitals/I&O/Wt Last Vital Signs Temp 97.2 F L 03/05/20 12:47 Pulse 89 03/05/20 12:47 Resp 14 03/05/20 12:47 Pulse Ox 100 03/05/20 12:47 Weight last 48 hrs Weight 150 lb Physical Exam Narrative: EXAM NARRATIVE: Const: no acute distress, patient oriented x3 and healthy appearing HENMT: normocephalic and atraumatic Eye: Equal, round and reactive pupils present and EOMs intact bilaterally Neck/C-Spine: full ROM and supple Chest: normal inspection of the chest and normal palpation of entire chest wall Resp: normal respiratory effort, No retractions, No use of accessory muscles and clear to auscultation bilaterally Cardio: regular rate, regular rhythm and No murmurs present (Cardio) RATE: GI: Normal to inspection, non-distended, normoactive bowel sounds present, Soft to palpation, non-tender and no masses Extremity: normal to inspection and full ROM Neuro: patient oriented x3, moves all extremities and no focal motor deficits Psych: mental status grossly normal and cooperative. his thought processes are organized and we have a perfectly coherent dialogue. He is very anxious and recognizes that he has a problem and would like to obtain it on an outpatient basis. Skin: no rashes or lesions noted and no wounds Hospital Course Discharge Summary: This patient has become anxious as he comes off methamphetamine. Upon being confronted with the restrictive nature of the inpatient unit, he insisted on his [place] interests and is competent to do so SSS Data Data Completed and Pending: Pending at discharge Category Date Time Status Drug Screen, Urin e Stat Lab 03/05/20 14:20 Ordered Diagnoses at Discharge Discharge Diagnosis (1) Methamphetamine dependence: Status: Acute Discharge Plan Discharge Patient Disposition: Home Condition: Stable Prescriptions: No Action No Known Home Medications RF: 0 Discharge Orders: Discharge Order (Routine); Ordered 03/05/20 Ordered By: Víctor Renee Discharge Diet: Usual diet Discharge Activity: Resume usual activity Discharge Date/Time: 03/05/20 15:00 Attestations Medical Necessity Statement*: This patient could well have profited from hospitalization but is competent to demand his release AGAINST MEDICAL ADVICE. Time Spent in Patient Care*: critical care time (De-escalation of patient. Assessment to assure that the patient is competent to demand is liberties AGAINST MEDICAL ADVICE.) Critical Care Time (min): 45 Quality Metrics Clinical Quality Measures: During this hospital stay, did patient experience: None Coding Level of Care Code Acute Licensed Practical Vocational Nurse for Vasiliyg Fwd Diagnoses Methamphetamine dependence F15.20
[2020-03-05 15:07] VITALS: RESP 14; TEMP 36.2; O2SAT 100
[2020-03-05 17:10] LABS: Amphetamines Screen Urine Positive (Negative); Barbiturates Screen Urine Negative (Negative); Benzodiazepines Screen Urine Negative (Negative); Cocaine Screen Urine Negative (Negative); Opiate Screen Urine Positive (Negative); PCP Screen Urine Negative (Negative); THC Screen Urine Positive (Negative)
--- NOTE | 2020-03-06 15:26 | PC.RESP ---
Smoking Cessation packet sent to patient.
== END 2020-03-05 15:00 | disposition home or self-care (01) | DRG 897 ==
LOC: ER 13:19 → NP 13:36
PROVIDERS: Emergency Provider Emergency Medicine
DX: F15.20 Other stimulant dependence, uncomplicated (principal); Z53.29 Procedure and treatment not carried out because of patient's decision for other reasons; F17.210 Nicotine dependence, cigarettes, uncomplicated
CPT/HCPCS: 12345; 80053; 80306; 80307; 85025; 99284